=== PATIENT | female | born 1990 | race Caucasian/White ===

== ENCOUNTER → 2021-07-10 14:17 | Outpatient (CLI) | payer OTHER, SELFPAY ==
[2021-07-10 17:28] LABS: GTT (PREG) 1 Hour PP 50gm Dose 177 mg/dL (76-139)
== END ==
PROVIDERS: Referring Provider Obstetrics & Gynecology; Visit Provider Obstetrics & Gynecology
DX: Z34.03 Encounter for supervision of normal first pregnancy, third trimester (principal); Z3A.33 33 weeks gestation of pregnancy
CPT/HCPCS: 36415; 82950

== ENCOUNTER → 2021-07-19 15:43 | Outpatient (CLI) | payer OTHER, SELFPAY ==
[2021-07-20 16:20] LABS: Strep Grp B PCR POS for Grp B Strep
== END ==
PROVIDERS: Visit Provider Obstetrics & Gynecology
DX: Z34.03 Encounter for supervision of normal first pregnancy, third trimester (principal); Z3A.36 36 weeks gestation of pregnancy
CPT/HCPCS: 87186; 87653

== ENCOUNTER → 2021-07-20 08:54 | Outpatient (CLI) | payer OTHER, SELFPAY ==
[2021-07-20 09:42] LABS: Glucose Fasting Gestational 88 mg/dL (76-95)
[2021-07-20 10:59] LABS: Glucose 1 Hour Gest 173 mg/dL (76-180)
[2021-07-20 11:32] LABS: Glucose 2 Hour Gest 179 mg/dL (76-155)
[2021-07-20 12:03] LABS: Glucose Tol Interp,Gestational INTERPRETATION
[2021-07-20 12:26] LABS: Glucose 3 Hour Gest 119 mg/dL (76-140)
== END ==
PROVIDERS: Referring Provider Obstetrics & Gynecology; Visit Provider Obstetrics & Gynecology
DX: O99.810 Abnormal glucose complicating pregnancy (principal)
CPT/HCPCS: 82951; 82952

== ENCOUNTER 2021-07-27 15:56 | Outpatient (CLI) | payer OTHER, MEDICAID, SELFPAY ==
--- NOTE | 2021-07-27 16:52 | PM.OBTRLD ---
Visit Information Visit Information Date of evaluation: 07/27/21 Primary OB Provider: Leigha Paulino Reason for Evaluation: Yes non-stress test Comments/Additional reasons for admission: Patient an NST for GDMA with polyhydramnios, 02/25 BPP in the office. Vital Signs Vital Signs: 136/84, HR 94 PFSH Medical History Abnormal Pap smear of cervix Anxiety Asthma Chicken pox Degenerated intervertebral disc Depression History of PCOS HPV in female Multiple sclerosis (~2013) Ovarian cyst Psoriasis Surgical History Anesthesia History of wisdom tooth extraction Family History Mother Hypertension Sister Hypertension Social History marital status: unmarried,living together Smoking Status: Former smoker Review of Systems Constitutional Constitutional: Reports system reviewed and no additional complaints, except as documented Evaluation Evaluation Baseline heart rate: 155 Variability: Moderate (11-25) monitor accelerations: Present (copious movement) Monitor Decelerations: Absent Status: Category l Diagnosis, Plan/Disposition Plan/Disposition Plan: Home with routine precautions OB Disposition: home
== END 2021-07-27 16:50 | disposition home or self-care (01) ==
LOC: OB 07-31 07:29
PROVIDERS: Referring Provider Obstetrics & Gynecology; Visit Provider Obstetrics & Gynecology
DX: O24.419 Gestational diabetes mellitus in pregnancy, unspecified control (principal); O40.3XX0 Polyhydramnios, third trimester, not applicable or unspecified; Z3A.37 37 weeks gestation of pregnancy
CPT/HCPCS: 59025; G0378; G0379

== ENCOUNTER 2021-07-30 04:13 | Inpatient (IN) | payer OTHER, MEDICAID, SELFPAY ==
[2021-07-30] MEDS: LACTATED RINGERS 1,000 ML 100 ML IV ×2 (05:00→07:13)
[2021-07-30 05:09] LABS: COVID19 -Nasal RAPID Negative (Negative)
[2021-07-30 05:48] LABS: Add Manual Diff / Slide Review NO; Basophils Absolute Auto 0 /uL (0-100); Basophils Percent Auto 0.4 % (0-2); Eosinophils Absolute Auto 100 /uL (0-450); Eosinophils Percent Auto 0.8 % (2-4); Hematocrit 31.7 % (36-46); Hemoglobin 10.6 g/dL (12.0-16.0); Lymphocytes Absolute Auto 1500 /uL (1100-4500); Lymphocytes Percent Auto 17.4 % (25-40); Mean Corpuscular HGB Conc 33.5 % (30-36); Mean Corpuscular Hemoglobin 26.7 PG (26-34); Mean Corpuscular Volume 79.9 fL (80-100); Monocytes Absolute Auto 600 /uL (0-900); Monocytes Percent Auto 7.1 % (3-14); Neutrophils Absolute Auto 6300 /uL (1500-7000); Neutrophils Percent Auto 74.3 % (50-75); Platelet Count 302 X10^3/uL (150-400); Red Blood Cell Count 3.96 X10^6/uL (4.0-5.2); Red Cell Distribution Width 14.2 % (11.6-14.8); White Blood Cell Count 8.5 X10^3/uL (4.5-11.0)
[2021-07-30] MEDS: CEFAZOLIN 2 GM/20 ML SYRINGE IV (06:40)
[2021-07-30] MEDS: OXYTOCIN PREMIX 30 UNIT/500 ML PLAST..BAG IV (08:03)
--- NOTE | 2021-07-30 09:52 | PM.OBHP.IH.1 ---
OB HPI Date/Time Date of admission: 07/30/21 Date Patient Seen: 07/30/21 Time Patient Seen: 08:30 History of Present Condition Chief complaint: OBS WILBER Calculator Estimated Delivery Date Method Current WG Current Estimate 08/16/21 Ultrasound #2 37w 4d Other Estimates 08/15/21 LMP (Uncertain) 37w 5d 08/15/21 Ultrasound #1 37w 5d Estimated Gestational Age (weeks): 37 4 : 1 Para: 0 care: good care Dating criteria OB: LMP confirmed by 1st trimester US Ultrasounds: normal mid trimester US and abnormal US findings (Polyhydramnios) Obstetrical complications: gestational diabetes (Elevated 1 hour GGT 177) and other (Polyhydramnios) Medical complications OB: immunologic (MS) Preadmission Labs Last OB Lab Results: Blood Type A Positive 07/30/21 05:20 07/30/21 Antibody Screen Negative 07/30/21 05:20 07/30/21 Hematocrit 31.7 % (36-46) L 07/30/21 05:20 07/30/21 Hemoglobin 10.6 g/dL (12.0-16.0) L 07/30/21 05:20 07/30/21 Glucose 1 Hour 177 mg/dL (76-139) H 07/10/21 15:34 07/10/21 Group B Streptococcus (PCR) Pos for grp b strep H 07/19/21 15:43 07/19/21 Genetic Screens: Cell-free DNA: Normal [facility] Medical History Abnormal Pap smear of cervix Anxiety Asthma Chicken pox Degenerated intervertebral disc Depression History of PCOS HPV in female Multiple sclerosis (~2013) Ovarian cyst Psoriasis Surgical History Anesthesia History of wisdom tooth extraction Family History Mother Hypertension Sister Hypertension Social History marital status: unmarried,living together Smoking Status: Former smoker Meds Home Medications and Allergies Home Medications Medication Instructions Recorded Confirmed Type No Known Home Medications 07/12/21 07/12/21 History Allergies Allergy/AdvReac Type Severity Reaction Status Date / Time amoxicillin Allergy Hives Verified 12/23/21 10:39 clavulanic acid Allergy Verified 07/12/21 10:39 [From Augmentin] glatiramer (copolymer 1) Allergy Hives Verified 07/12/21 10:39 banana AdvReac Mild GI Verified 07/12/21 10:39 intolerance gluten AdvReac Mild Verified 07/12/21 10:39 lactose AdvReac Mild GI Verified 07/12/21 10:39 intoerance OB Exam [facility] Head: normal to inspection Cardio Rate: regular rate Objective Labs Result Diagrams: 07/30/21 05:20 Labs: Laboratory Results - last 24 hr 07/30/21 07/30/21 07/30/21 04:40 05:20 05:20 WBC 8.5 RBC 3.96 L Hgb 10.6 L Hct 31.7 L MCV 79.9 L MCH 26.7 MCHC 33.5 RDW 14.2 Plt Count 302 Neut % (Auto) 74.3 Lymph % (Auto) 17.4 L [place] % (Auto) 7.1 Eos % (Auto) 0.8 L Baso % (Auto) 0.4 Neut # (Auto) 6300 Lymph # (Auto) 1500 [place] # (Auto) 600 Eos # (Auto) 100 Baso # (Auto) 0 SARS-CoV-2 (PCR) Negative Blood Type A Positive Antibody Screen Negative Assessment and Plan Assessment and Plan Assessment and Plan narrative: 31-year-old female G1 para 037 weeks 4 days gestational age D[place] care complicated by maternal MS polyhydramnios with abnormal 1 hour glucose challenge. Patient states she had an ultrasound done less than 1 week ago estimated size was 7 lb 5 oz with polyhydramnios. Patient presented to the labor and delivery floor for concerns about rupture of membranes. Patient was positive for rupture of membranes began humberto uncomfortably in was given an epidural. I then took over care this morning form the weekend provider. Patient has an epidural in was just started on Pitocin. She had relapse her membranes. Nursing staff reported her to be 2-3 cm 100% effaced -3 station. heart tones have been reassuring mom's vital signs are stable. She has been given antibiotic prophylaxis for GBS status and expected management is discussed with mom and partner today. All consents and orders were reviewed.
[2021-07-30 10:29] VITALS: BP 128/66
[2021-07-30] MEDS: FENT 2MCG/ML BUPIV 0.125% EPI 200 MCG/100 ML PLAST..BAG 12 MCG EPIDURAL (11:46)
--- NOTE | 2021-07-30 12:53 | PM.OBPNLAB ---
Date/Time Date Patient Seen: 07/30/21 Time Patient Seen: 12:53 Pain Control Pain control: tolerating well and epidural Pelvic Exam Dilation (cm): 9 Effacement (%): 100 station: +1 Amniotic membrane status: Leaking Contractions Contractions on admission: regular Monitor mode: External Pitocin rate (mU/min): 6 Contraction frequency (min): 5 Contraction pattern: Regular Contraction intensity: Strong/Firm Status status: Category ll Heart Rate Baseline: 150 Monitor Accelerations: Present Monitor Decelerations: Early Monitor Variability: Moderate Assessment and Plan Assessment: active labor Comments: Patient doing well. Strip reviewed. Pitocin rate reviewed discussed with nursing cervical exam shows 9 cm. Plus one station. Variable decelerations and some early deceleration from head compression. Continue to monitor for baby transition.
[2021-07-30] MEDS: CEFAZOLIN 1 GM VIAL IV (14:09)
--- NOTE | 2021-07-30 17:41 | P.PCNOB_ITS ---
Labor & Delivery Delivery date: 07/30/21 Estimated blood loss (mL): 300 Narrative: Stage I of labor; approximately 10 hours. Patient presented to Labor and delivery floor with spontaneous rupture of membranes. Patient was humberto 2-3 cm clear amniotic fluid patient was GBS status positive. Admission labs vital signs orders were reviewed by on-call physician. Patient received an epidural. I took over care approximately 8:39 a.m. in the morning. Patient was having minimal contractions and just started on Pitocin cervix was 2-3 cm in category 1 heart tracing. During stage I patient was started on Pitocin and got up to 6 units. Patient had category 1 category 2 tracing with some variable and early decelerations with the position changes. Mom received a 2nd course of antibiotics near the AA and of stage I. Mom made good progression through his cervical change. Baby had the good descent during stage I of labor from +3 to +2 station down to 0 to +1 station. Patient became complete. Her pain was well controlled with her epidural and her vital signs remained stable. She was afebrile. Stage II of labor approximately 1 hours. Patient head category 1 category 2 tracing during stage II of labor. Patient had variable and some late D cells intermittent. Patient had good rebound of heart rate during stage II of labor. Mom pushed well and effectively during stage II of labor and baby had good descent of through the canal while pushing. Mom had good epidural anesthesia. At the delivery of the head. There was no nuchal cord. There is a mild shoulder dystocia. Which was easily reduced with the reclining patient into the flat position with the help of 2 nurses patient was placed in the [facility] and the baby was easily delivered. Afterwards baby was doing well. Delayed cord clamping was done. Stage III of labor delivery of intact placenta with three-vessel cord inspection of cervix and vagina so no laceration. Mom had Pitocin ran in after the delivery of the placenta without difficulty. Blood loss was 300 cc mom and baby were doing well afterwards. Apgars were 5 8 and 9.
[2021-07-30] MEDS: IBUPROFEN 600 MG TABLET PO (18:32)
[2021-07-30] MEDS: ACETAMINOPHEN 325 MG TABLET 650 MG PO (18:33)
[2021-07-31] MEDS: IBUPROFEN 600 MG TABLET PO ×2 (03:24→10:23)
[2021-07-31] MEDS: ACETAMINOPHEN 325 MG TABLET 650 MG PO ×2 (03:24→10:24)
[2021-07-31] MEDS: LANOLIN OINT 7 GM 1 APPLIC TOP (03:24)
--- NOTE | 2021-07-31 09:19 | P.DS_ITS ---
Discharge Providers Provider Date of admission: 07/30/21 04:13 Discharge Date: 07/28/21 Consults: 07/31/21 17:40 Consult to [facility] Routine Comment: Discharge provider: Leigha Paulino MD Summary Hospital Course Date Patient Seen: 07/31/21 Time Patient Seen: 08:30 Diagnoses: Vaginal delivery Hospital Course: This patient was admitted in early labor after PROM. She was augmented with pitocin, and progressed to fully dilated. Her had been complicated by late transfer of care and GDMA1, and her delivery was complicated by a short shoulder dystocia resolved with maternal positioning. Baby and mom did well, and her course was uncomplicated. She was discharged home on PPD#1 with routine precautions. Peripartum Data Infant Delivery Method: Natural Vaginal Laceration Description: None complications: none [place] 1: Gender: Male Disposition of : home Status at Discharge Cognitive/behavioral status at discharge: oriented Overall status at discharge: patient is progressing back to baseline Time Spent with Patient Time attestation: Total time spent providing and/or coordinating discharge services: Objective Labs Result Diagrams: 07/31/21 12:56 Exam Vital Signs (past 8 hours): VSS Narrative Exam Narrative: Patient ambulating, voiding, passing flatus. Moderate lochia, , no PIH symptoms. Const General: cooperative, healthy appearing and well groomed Resp Effort & Inspection: normal respiratory effort Auscultation: clear to auscultation bilaterally Cardio Rate: regular rate Rhythm: regular rhythm GI Palpation: soft and No tender Other: Fundus firm, well below u Discharge Plan Discharge Plan Patient Disposition: Home Discharge orders & Medications Prescriptions: No Action No Known Home Medications 0RF Follow up/Referrals: Leigha Paulino MD [Physician] - 6 Weeks (6 week appt 9:00am Saturday September 11, 2021.) Diet/Activity/Treatments Diet: Regular Activity: Nothing in the vagina for 6 weeks. Avoid lifting more than 10 lbs for 6 weeks. If you have increasing bleeding, fevers, chills, nausea, vomiting, headaches, visual changes, or any other symptoms, call or come to the emergency room. Skin/Wound/Dressing Care Report to your healthcare provider any signs of infection, such as:: chills, fever, night sweats, increased pain, unusual drainage and unusual redness Visit Report/Discharge Packet Instructions: DI for Labor and Delivery, Vaginal Stand Alone Forms: Discharge: Care
[2021-07-31] MEDS: PRENATAL VIT,CALC/IRON/FOLIC 1 TABLET 1 TAB PO (10:23)
[2021-07-31] MEDS: DOCUSATE 100 MG CAPSULE PO (10:24)
[2021-07-31 13:10] LABS: Add Manual Diff / Slide Review NO; Basophils Absolute Auto 100 /uL (0-100); Basophils Percent Auto 0.6 % (0-2); Eosinophils Absolute Auto 200 /uL (0-450); Eosinophils Percent Auto 1.3 % (2-4); Hematocrit 30.3 % (36-46); Hemoglobin 9.9 g/dL (12.0-16.0); Lymphocytes Absolute Auto 2100 /uL (1100-4500); Lymphocytes Percent Auto 16.6 % (25-40); Mean Corpuscular HGB Conc 32.5 % (30-36); Mean Corpuscular Hemoglobin 26.4 PG (26-34); Mean Corpuscular Volume 81.3 fL (80-100); Monocytes Absolute Auto 700 /uL (0-900); Monocytes Percent Auto 5.6 % (3-14); Neutrophils Absolute Auto 9500 /uL (1500-7000); Neutrophils Percent Auto 75.9 % (50-75); Platelet Count 298 X10^3/uL (150-400); Red Blood Cell Count 3.73 X10^6/uL (4.0-5.2); Red Cell Distribution Width 14.6 % (11.6-14.8); White Blood Cell Count 12.5 X10^3/uL (4.5-11.0)
[2021-07-31 13:37] VITALS: BP 120/73; PULSE 67; RESP 16; TEMP 36.7
== END 2021-07-31 17:05 | disposition home or self-care (01) | DRG 806 ==
PROVIDERS: Family Medicine; Admitting Provider Obstetrics & Gynecology; Referring Provider Obstetrics & Gynecology; Visit Provider Obstetrics & Gynecology
DX: O40.3XX0 Polyhydramnios, third trimester, not applicable or unspecified (principal); O99.354 Diseases of the nervous system complicating childbirth; Z37.0 Single live birth; G35 Multiple sclerosis; O24.429 Gestational diabetes mellitus in childbirth, unspecified control; O99.824 Streptococcus B carrier state complicating childbirth; O76 Abnormality in fetal heart rate and rhythm complicating labor and delivery; Z3A.37 37 weeks gestation of pregnancy; O66.0 Obstructed labor due to shoulder dystocia; Z20.822 Contact with and (suspected) exposure to COVID-19
CPT/HCPCS: 36415; 59050; 59410; 85025; 86850; 86900; 86901; 87635; C9803; G0379; J0690; J2590; J3010

== ENCOUNTER → 2021-10-12 07:43 | Outpatient (CLI) | payer OTHER, MEDICAID, SELFPAY ==
[2021-10-12 09:56] LABS: Glucose Fasting 85 mg/dL (70-100)
[2021-10-12 10:02] LABS: Glucose Tol Interpretation INTERPRETATION
[2021-10-12 10:07] LABS: Glucose 1 Hour 98 mg/dL (70-170)
[2021-10-12 10:39] LABS: Free T4, Direct Thyroxine 1.06 ng/dL (0.78-2.19)
[2021-10-12 11:28] LABS: Glucose 2 Hour 62 mg/dL (70-140)
== END ==
PROVIDERS: Referring Provider Obstetrics & Gynecology; Visit Provider Obstetrics & Gynecology
DX: O24.419 Gestational diabetes mellitus in pregnancy, unspecified control (principal)
CPT/HCPCS: 36415; 82951; 82952; 84439; 84443